=== PATIENT | female | born 1970 | race American Indian/Alaskan Native ===

== ENCOUNTER 2017-07-03 05:35 | Day surgery (SDC) | payer OTHER ==
[~2017-07-03] VITALS: Ht 160 cm; Wt 64.9 kg
--- NOTE | ~2017-07-03 | OR ---
[facility] [address] [place], [place] [address] Draft DATE OF OPERATION: 07/03/2017 SURGEON: Bernarda Cho MD PREOPERATIVE DIAGNOSES: 1. A 46-year-old 4, para 2 with menometrorrhagia. 2. Dysmenorrhea. 3. Adenomyosis on ultrasound findings. 4. Suspected endometriosis. POSTOPERATIVE DIAGNOSES: 1. A 46-year-old 4, para 2 with menometrorrhagia. 2. Dysmenorrhea. 3. Adenomyosis on ultrasound findings. 4. endometriosis. FINDINGS: Endometriosis in the pelvis. PROCEDURE: Total laparoscopic hysterectomy with bilateral salpingectomy and cystoscopy. ACQUISITIONS LOGISTICS ANALYST SURGEON: Tierney Orta MD ANESTHESIA: General endotracheal per Yolanda Harris CRNA IVF: 2400 mL of lactated Ringer's. URINE OUTPUT: Less than 50 mL with Reynoso draining to gravity. ESTIMATED BLOOD LOSS: 50 mL. FINDINGS: Enlarged, boggy uterus with endometrial implants in the right uterosacral ligament and posterior cul-de-sac, adhesions of the right anterior abdominal wall near the appendix. PATHOLOGY: Uterus and tubes. PROCEDURE TECHNIQUE: The patient was taken back to the operating room with IV fluids. She was placed on the operating table in supine position, received general endotracheal anesthesia with rapid sequence intubation. She was then repositioned in dorsal lithotomy position with Jeff Stirrups prepped and draped in normal sterile fashion. A sterile weighted speculum was placed into vagina and the patient's urethra was easily PATIENT NAME: YONATAN SANZ OPERATIVE REPORT DATE OF : 68 PHYSICIAN: BERNARDA CHO MD REPORT #: [id number] REPORT IS CONFIDENTIAL AND NOT TO BE RELEASED WITHOUT AUTHORIZATION [facility] [address] [place], [place] [address] Draft visualized. A Reynoso catheter was placed under sterile technique and then a VESIcare uterine manipulator was placed the cup tight against the cervix and the uterus sounded to 11 cm. The vcare balloon was inflated with sterile water and then the VESIcare was tightened down against the cervix. The weighted speculum was then removed from the vagina, and attention was then turned to the abdomen. The infraumbilical fold was infiltrated subcutaneously with approximately 2 mL of 0.5% plain Marcaine and a #10 scalpel was used to incise the infraumbilical fold. The incision was then made to approximately 10 mm in size, and was dissected down with Metzenbaum scissors to the level of the fascia, which was visualized and grasped with mosquito clamps. The fascia was incised and 0-Vicryl sutures were placed on either side and the Renetta trocar was then placed through the incision after the peritoneum was identified and entered bluntly prior to placing the Renetta. Renetta was then tightened down, and the laparoscope was placed after insufflating the abdomen approximately 3 L of carbon dioxide . After placement, the scope verified that we were in the pelvis and uterus was easily visualized along with the findings of endometriosis implants along the uterosacral ligament on the right side, and in the posterior cul-de-sac, as well as the adhesions from the right anterior abdominal wall near the area of the appendix. An expandable 12 mm port was then placed using the [employer] needle on the right side just below the umbilicus through the 5mm incision under direct visualization. 1cc of 0.5% plain marciane was injected subcutaneously. Another 5mm incision was made on the left side just below the umbilicus after injecting 1cc of 0.5% marcaine DICTATION ENDS HERE. Bernarda Cho MD JKM/MODL /[id number] PATIENT NAME: YONATAN SANZ OPERATIVE REPORT DATE OF : 68 PHYSICIAN: BERNARDA CHO MD REPORT #: [id number] REPORT IS CONFIDENTIAL AND NOT TO BE RELEASED WITHOUT AUTHORIZATION
--- NOTE | 2017-07-03 10:00 | NUR ---
07/03/17 1000 Marcela Gutiérrez 0949 O2 SAT 100%, O2 REMOVED. 0955 MD AT BED SIDE. 0940 PT REPORTING PAIN 5/10, GOAL OF 2/10, MEDICATION GIVEN PER EMAR. 0949 PT REPORTING PAIN 4/10, PAIN MEDICATION GIVEN PER EMAR.
[2017-07-03] MEDS ORDERED: IBUPROFEN800 MG PO (11:01)
[2017-07-03] MEDS ORDERED: PERCOCET 5-3251 EACH PO (11:37)
--- NOTE | 2017-07-03 11:47 | NUR ---
LE 1115 GARCIA DC'D. TIP INTACT. 200ML BRIGHT YELLOW URINE EMPTIED FROM ZELAYA. UP TO BATHROOM. VOIDED 50ML BRIGHT YELLOW URINE. BACK IN ROOM DRINKING COFFEE. NO C/O'S.
--- NOTE | 2017-07-03 14:18 | NUR ---
PT RESTING IN BED, FAMILY BY HER SIDE. HIS NAME IS ABELARDO, AND HE WILL COME BACK TO PICK PT UP WHEN SHE IS READY. PT WAITING FOR DR CHO TO COME IN. PT REQUESTED PRAYER
== END 2017-07-03 12:15 | disposition home or self-care (01) ==
LOC: DS 05:35
PROVIDERS: Obstetrics & Gynecology
PROC: 0UT94ZZ Resection of Uterus, Percutaneous Endoscopic Approach (ICD-10-PCS; principal; 2017-07-03 06:45)
PROC: 0UB74ZZ Excision of Bilateral Fallopian Tubes, Percutaneous Endoscopic Approach (ICD-10-PCS; 2017-07-03 06:45)
DX: N80.0 Endometriosis of uterus (principal); N87.9 Dysplasia of cervix uteri, unspecified; N88.8 Other specified noninflammatory disorders of cervix uteri; N83.8 Other noninflammatory disorders of ovary, fallopian tube and broad ligament; F17.210 Nicotine dependence, cigarettes, uncomplicated
CPT/HCPCS: 00840; J0690; J1100; J1644; J1885; J2250; J2405; J2597; J2704; J3010; J7120

== ENCOUNTER 2021-03-25 07:43 | Day surgery (SDC) | payer OTHER ==
[~2021-03-25] VITALS: Ht 157.5 cm; Wt 67.0 kg
[~2021-03-25 07:43] MED LIST: IBUPROFEN800 MG PO; PERCOCET 5-3251 EACH PO
--- NOTE | 2021-03-25 09:54 | NUR ---
03/25/21 0954 Linh Hernandez 0998-PATIENT ARRIVED TO PACU ON 2L NC RR EVEN LAYING LEFT LATERAL. NONAROUSABLE. ABDOMEN SOFT IVF INFUSING. SR.
--- NOTE | 2021-03-25 12:44 | OR ---
[facility] [address] [place], [place] [address] Signed DATE OF OPERATION: 03/25/2021 SURGEON: Zain Doan MD PREOPERATIVE DIAGNOSIS: Postprandial abdominal pain and diarrhea. POSTOPERATIVE DIAGNOSES: 1. 4 mm polyps at 4 cm, 8 cm and 15 cm. 2. Minimal internal hemorrhoids. PROCEDURES: Colonoscopy with hot biopsies and random cold biopsies x3. ESTIMATED BLOOD LOSS: None. INDICATIONS: Autumn is a 50-year-old female, asked to see me for a colonoscopy. She describes postprandial abdominal pain when she eats too much followed by diarrhea. However, she has abdominal pain when she does not eat enough. There is no family history of inflammatory bowel disease. No family history of colon cancer or polyps. Her went through several colonoscopies and so she is familiar with this process. I had given her a pamphlet on colonoscopy. She understands there is risk including, but not limited to gas bloating, crampy abdominal pain, bleeding, perforation requiring surgery, and missed diagnosis. She also understands the need for IV conscious sedation. She had expressed understanding and wished to proceed. PROCEDURE NOTE: Autumn was taken into our endoscopy suite and placed in the left lateral decubitus position. She was given 200 mcg of fentanyl and 10 mg of Versed. Even then, the scope was buckling in her left colon and we had to bring in an anesthesia provider for propofol infusion. After that, she was quite relaxed and the scope passed quite readily into the cecum itself. Her prep was quite excellent. A digital rectal exam had been done and that was unremarkable as well. We could see the appendiceal orifice. We could also see the opening to the terminal ileum behind the ileocecal valve. Unfortunately, we could not get our scope to pass up into the ileum itself. The scope was slowly withdrawn and we had taken pictures throughout the colon for photodocumentation. The above-mentioned polyps were discovered and removed easily with hot biopsy forceps. She does have minimal internal hemorrhoid columns. No evidence of any diverticulosis or Electronically Signed By: ZAIN DOAN MD 03/25/21 1244 PATIENT NAME: AUTUMN SANZ OPERATIVE REPORT DATE OF : 68 REPORT #: [id number] PHYSICIAN: ZAIN DOAN MD PCP: DAYO RAHMAN PA-C REPORT IS CONFIDENTIAL AND NOT TO BE RELEASED WITHOUT AUTHORIZATION [facility] [address] [place] [id number] Signed inflammatory changes. We took three random biopsies throughout the colon for pathologic review due to her history of diarrhea. After this, the gas was suctioned out and the colonoscope removed. Autumn tolerated the procedure quite well. RECOMMENDATIONS: I will see Autumn back in my office in 7 to 14 days to review her results. She might consider a shorter followup interval to ensure all polyps have been removed from the rectum. MD HOLLY Quigley/JUANL /[id number] cc: MD Dayo Quigley Copies: ZAIN DOAN MD ~ Electronically Signed By: ZAIN DOAN MD 03/25/21 1244 PATIENT NAME: AUTUMN SANZ OPERATIVE REPORT DATE OF : 68 REPORT #: [id number] PHYSICIAN: ZAIN DOAN MD PCP: DAYO RAHMAN PA-C REPORT IS CONFIDENTIAL AND NOT TO BE RELEASED WITHOUT AUTHORIZATION
--- NOTE | 2021-03-26 16:54 | PATH ---
[facility] [address] [place], [place] [address] Signed SPECIMEN(S): A RECTAL POLYP 8 CM SPECIMEN(S): B SIGMOID POLYP 15 CM SPECIMEN(S): C COLON POLYP 4 CM SPECIMEN(S): D COLON BIOPSY SPECIMEN SOURCE: A. RECTAL POLYP 8 CM B. SIGMOID POLYP 15 CM C. COLON POLYP 4 CM D. COLON BIOPSY CLINICAL HISTORY: Abdominal pain, diarrhea, screening. MICROSCOPIC DESCRIPTION: Histologic sections of all submitted blocks are examined by light microscopy. These findings, together with the gross examination, support the pathologic diagnosis. FINAL PATHOLOGIC DIAGNOSIS: A. Rectum, 8 cm, polypectomy: - Hyperplastic polyp. B. Colon, sigmoid at 15 cm, polypectomy: - Hyperplastic polyp. C. Colon, 4 cm, polypectomy: - Hyperplastic polyp. D. Colon, biopsy: - Colonic mucosa with melanosis coli. NAL:cml:C2NR GROSS DESCRIPTION: Four specimens are received in four containers, labeled "SB." A. The specimen, labeled "SB, one," and designated on the requisition "rectum polypectomy 8 cm," is received in formalin and consists of 3 giang soft tissue fragment(s) that measure 0.2 up to 0.3 cm in greatest dimension. The specimen is entirely submitted in cassette (A1). B. The specimen, labeled "SB, 2," and designated on the requisition "sigmoid polypectomy 15 cm," is received in formalin and consists of 4 giang soft tissue fragment(s) that measure 0.2-0.3 cm in greatest dimension. The specimen is entirely submitted in cassette (B1). C. The specimen, labeled "SB, 3," and designated on the requisition "colon polypectomy 4 cm," is received in formalin and consists of one giang soft tissue PATIENT NAME: YONATAN SANZ PATHOLOGY DATE OF : 68 REPORT #: [id number] PHYSICIAN: CAMMIE PATHOLOGY PCP: DAYO RAHMAN PA-C REPORT IS CONFIDENTIAL AND NOT TO BE RELEASED WITHOUT AUTHORIZATION [facility] [address] [place], [place] [address] Signed fragment that measures 0.4 cm in greatest dimension. The specimen is entirely submitted in cassette (C1). D. The specimen, labeled "SB, 4," and designated on the requisition "colon random biopsy," is received in formalin and consists of 3 giang soft tissue fragment(s) that measure 0.3 cm in greatest dimension. The specimen is entirely submitted in cassette (D1). AI (under the direct supervision of a pathologist) The Gross Description was prepared using a voice recognition system. The report was reviewed for accuracy; however, sound-alike word errors, addition and/or deletions may occur. If there is any question about this report, please contact Client Services. PERFORMING LABORATORY: The technical component was performed by [employer], [address] [place] [address] (Grab Operator: Idania Coleman MD; CLIA# [id number]). [facility] [place] [facility], [address] [address] (CLIA# [id number]). Diagnostician: Willis Carrizales MD Pathologist Electronically Signed 03/26/2021 Copies: ~ PATIENT NAME: YONATAN SANZ PATHOLOGY DATE OF : 68 REPORT #: [id number] PHYSICIAN: CAMMIE PATHOLOGY PCP: DAYO RAHMAN PA-C REPORT IS CONFIDENTIAL AND NOT TO BE RELEASED WITHOUT AUTHORIZATION
== END 2021-03-25 11:30 | disposition home or self-care (01) ==
LOC: DS 07:43 → OPS 07:43 → DS 09:00 → OPS 11:30 → DS 04-15 09:00
PROVIDERS: ATTEND Colon & Rectal Surgery
PROC: 0DBP8ZX Excision of Rectum, Via Natural or Artificial Opening Endoscopic, Diagnostic (ICD-10-PCS; 2021-03-25)
PROC: 0DBN8ZX Excision of Sigmoid Colon, Via Natural or Artificial Opening Endoscopic, Diagnostic (ICD-10-PCS; principal; 2021-03-25 09:00)
DX: Z12.11 Encounter for screening for malignant neoplasm of colon (principal); K64.8 Other hemorrhoids; K62.1 Rectal polyp; K63.5 Polyp of colon; K63.89 Other specified diseases of intestine; R19.7 Diarrhea, unspecified; R10.84 Generalized abdominal pain; F17.210 Nicotine dependence, cigarettes, uncomplicated
CPT/HCPCS: 99153; G0500; J2250; J2704; J3010; J7121

== ENCOUNTER 2021-05-26 06:00 | Day surgery (SDC) | payer OTHER ==
[~2021-05-26] VITALS: Ht 160 cm; Wt 66.4 kg
--- NOTE | ~2021-05-26 | OR ---
[facility] [address] [place], [place] [address] Draft DATE OF OPERATION: 05/26/2021 SURGEON: Zain Doan MD PREOPERATIVE DIAGNOSIS: 1. Periumbilical abdominal pain. 2. Diarrhea. POSTOPERATIVE DIAGNOSIS: Unremarkable stomach. PROCEDURES: EGD with CLOtest and biopsies of the duodenum, pyloric bulb and antrum. ESTIMATED BLOOD LOSS: None. INDICATIONS: Autumn is a 50-year-old female, asked to see me for an upper endoscopy. She is at her ideal body weight. She went to a partial hysterectomy a few years ago. She now describes periumbilical pain about 10 minutes or so after eating. Her colonoscopy was unremarkable. Random biopsy showed mild melanosis coli. However, she does not use any laxatives. We could not access the terminal ileum during that colonoscopy. We therefore sent her for a small bowel follow-through. The contrast made it through the small bowel into the colon in less than 30 minutes and down to the sigmoid colon in 35 minutes. There were no areas of inflammatory changes or thickening to the bowel. There was no evidence of any strictures or bowel obstruction. She presents now for upper endoscopy with biopsies given her ongoing symptoms. During her colonoscopy, we had given her 10 mg of Versed and 200 mcg of fentanyl and still had to use propofol with an anesthesia provider to complete the test. We therefore asked for an anesthesia provider on this occasion. That proved to be a felix decision as she did need the propofol for adequate sedation. In the office, I had given her a pamphlet on upper endoscopy. She understands the nature of that test. There is risk including, but not limited to gas bloating, crampy abdominal pain, bleeding, perforation requiring surgery, and missed diagnosis. She had expressed understanding and wished to proceed. PROCEDURE NOTE: Autumn was taken into our endoscopy suite and placed in the supine semi-recumbent position. A bite block was utilized for the case. She was given monitored anesthesia care with propofol per our nurse senior applications engineer. She did require airway control with her PATIENT NAME: AUTUMN SANZ OPERATIVE REPORT DATE OF : 68 REPORT #: [id number] PHYSICIAN: ZAIN DOAN MD PCP: DAYO RAHMAN PA-C REPORT IS CONFIDENTIAL AND NOT TO BE RELEASED WITHOUT AUTHORIZATION [facility] [address] [place], [place] [address] Draft tongue and saliva and so forth. The adult gastroscope was introduced and advanced out in the stomach without difficulty. She had actually quite a bit of food in her stomach. Apparently, her tongue was a bit stained as if she had coffee this morning. There is a question whether or not she ate this morning versus last night. Nevertheless, she had quite a bit of food in her stomach. She does not give any symptoms of gastroparesis in the office. We made our way slowly around the food and down to the pylorus and out into the duodenum. The duodenum and pyloric channel were unremarkable. We went ahead and took biopsies out of the duodenum and pyloric channel because the history of diarrhea. We took biopsies from the antrum for pathologic review as well as CLOtest. No findings in the antrum, body or fundus of the stomach. Upon retroflexion of scope, there was no evidence of a hiatal hernia. The scope was withdrawn up through the area of the GE junction, which was compliant without stricture. Her Z-line is right at about 35 cm. The distal esophagus, middle esophagus, and upper esophagus were unremarkable. After this, the gas had been suctioned out and the gastroscope removed. Autumn tolerated the procedure quite well. RECOMMENDATIONS: I will see Autumn back in my office in 7 to 14 days to review her results. It looks like she has rapid small-bowel follow-through. Zain Doan MD ALB/MODL /[id number] cc: MD Dayo Quigley PA Copies: ZAIN DOAN MD ~ PATIENT NAME: AUTUMN SANZ OPERATIVE REPORT DATE OF : 68 REPORT #: [id number] PHYSICIAN: ZAIN DOAN MD PCP: DAYO RAHMAN PA-C REPORT IS CONFIDENTIAL AND NOT TO BE RELEASED WITHOUT AUTHORIZATION
--- NOTE | 2021-05-26 07:44 | NUR ---
05/26/21 0744 Linh Hernandez 0738-PATIENT ARRIVED TO PACU ON 6L NC NONAROUSABLE RN DOING JAW THRUST TO MAINTAIN OPEN AIRWAY. SR. IVF INFUSING. PATIENT DOES NOT HAVE DENTURES IN PLACE ABDOMEN SOFT. RR EVEN PLACED ON 4L NC 100% 0742-PATIENT MAINTAING OWN AIRWAY HOB ELEVATED PATIENT AROUSING TO VERBAL AND TACTILE STIMULI DOES NOT OPEN EYES. PLACED ON 2L NC RR EVEN 100%
--- NOTE | 2021-05-27 17:10 | PATH ---
[facility] [address] [place], [place] [address] Signed SPECIMEN(S): A ANTRUM/PYLORUS BIOPSY SPECIMEN(S): B DUODENAL BIOPSY SPECIMEN(S): C DUODENAL BULB BIOPSY SPECIMEN SOURCE: A. ANTRUM/PYLORUS BIOPSY B. DUODENAL BIOPSY C. DUODENAL BULB BIOPSY CLINICAL HISTORY: EGD biopsy. Diarrhea, postprandial periumbilical pain. Postop Dx: Unremarkable. MICROSCOPIC DESCRIPTION: Histologic sections of all submitted blocks are examined by light microscopy. These findings, together with the gross examination, support the pathologic diagnosis. FINAL PATHOLOGIC DIAGNOSIS: A. Stomach, antrum/pylorus, biopsy: - Antral mucosa with no histopathologic abnormality. - Negative for Helicobacter organisms on HE stain. - Negative for dysplasia or malignancy. B. Duodenum, biopsy: - Duodenal mucosa with Mahnaz's gland hyperplasia. - Negative for increased intraepithelial lymphocytes or villous blunting. - Negative for dysplasia or malignancy. C. Duodenal bulb, biopsy: - Duodenal mucosa with Mahnaz's gland hyperplasia. - Negative for increased intraepithelial lymphocytes or villous blunting. - Negative for dysplasia or malignancy. NAL:cml:C2NR GROSS DESCRIPTION: Three specimens are received in three containers, labeled "SB." A. The specimen, labeled "SB, antrum biopsy," is received in formalin and consists of one giang soft tissue fragment that measures 0.2 cm in greatest dimension. The specimen is entirely submitted in cassette (A1). B. The specimen, labeled "SB, duodenum biopsy," is received in formalin and consists of one giang soft tissue fragment that measures 0.2 cm in greatest dimension. The specimen is entirely submitted in PATIENT NAME: YONATAN SANZ PATHOLOGY DATE OF : 68 REPORT #: [id number] PHYSICIAN: CAMMIE ROLLE PCP: DAYO RAHMAN PA-C REPORT IS CONFIDENTIAL AND NOT TO BE RELEASED WITHOUT AUTHORIZATION [facility] [address] [place], [place] [address] Signed cassette (B1). C. The specimen, labeled "SB, duodenal bulb biopsy," is received in formalin and consists of one giang soft tissue fragment that measures 0.2 cm in greatest dimension. The specimen is entirely submitted in cassette (C1). JS (under the direct supervision of a pathologist) The Gross Description was prepared using a voice recognition system. The report was reviewed for accuracy; however, sound-alike word errors, addition and/or deletions may occur. If there is any question about this report, please contact Client Services. PERFORMING LABORATORY: The technical component was performed by [employer], [address] [place] [id number] (Field Care Advocate: Idania Coleman MD; CLIA# [id number]). Professional interpretation was performed by [employer], [facility], [address] [place] [address] (CLIA# [id number]). Diagnostician: Shawna Benitez MD Pathologist Electronically Signed 05/27/2021 Copies: ~ PATIENT NAME: YONATAN SANZ PATHOLOGY DATE OF : 68 REPORT #: [id number] PHYSICIAN: CAMMIE ROLLE PCP: DAYO RAHMAN PA-C REPORT IS CONFIDENTIAL AND NOT TO BE RELEASED WITHOUT AUTHORIZATION
== END 2021-05-26 08:10 | disposition home or self-care (01) ==
LOC: DS 06:00 → OPS 06:00 → DS 06:45 → OPS 08:10
PROVIDERS: ATTEND Colon & Rectal Surgery
PROC: 0DB98ZZ Excision of Duodenum, Via Natural or Artificial Opening Endoscopic (ICD-10-PCS; principal; 2021-05-26 06:45)
DX: R10.33 Periumbilical pain (principal); R19.7 Diarrhea, unspecified; K31.89 Other diseases of stomach and duodenum; F17.210 Nicotine dependence, cigarettes, uncomplicated; Z90.710 Acquired absence of both cervix and uterus
CPT/HCPCS: J2704; J7121